=== PATIENT | female | born 1975 | race Caucasian/White ===

== ENCOUNTER 2017-01-01 16:58 | Emergency (ER) | payer BC, OTHER ==
[~2017-01-01] VITALS: Ht 152.4 cm; Wt 74.3 kg
[2017-01-01] MEDS ORDERED: SODIUM CHLORIDE FLUSH 10ML SYR IVF ONE (17:30)
[2017-01-01] MEDS ORDERED: SODIUM CHLORIDE 0.9% 1,000ML IVBOLUS ONE (17:30)
[2017-01-01 17:44] LABS: HEMATOCRIT 39.4 % (34.6-47.8); WHITE BLOOD COUNT 9.3 x10^3/uL (3.4-10)
[2017-01-01 17:55] LABS: BLOOD UREA NITROGEN 7 mg/dL (7-18)
[2017-01-01] MEDS ORDERED: DEXAMETHASONE 4 MG TABLET ONE (18:52)
[2017-01-01] MEDS ORDERED: PLEASE ENTER ALLERGIES MC SCH ×2 (19:00)
[2017-01-01] MEDS ORDERED: DEXAMETHASONE 4 MG TABLET PO ONE (19:00)
[2017-01-01 19:54] VITALS: BP 119/77
== END 2017-01-01 19:57 | disposition home or self-care (01) ==
LOC: ED 19:35
DX: J02.9 Acute pharyngitis, unspecified (principal); J03.90 Acute tonsillitis, unspecified
CPT/HCPCS: 36415; 80048; 82040; 85025; 99284